=== PATIENT | female | born 1995 | race Caucasian/White ===

== ENCOUNTER 2021-10-10 13:42 | Outpatient (CLI) | payer OTHER ==
[~2021-10-10 13:42] MED LIST: IBUPROFEN600 MG PO
== END 2021-10-10 16:17 | disposition home or self-care (01) ==
LOC: GENOP 13:42
DX: O47.1 False labor at or after 37 completed weeks of gestation (principal); O99.283 Endocrine, nutritional and metabolic diseases complicating pregnancy, third trimester; E03.9 Hypothyroidism, unspecified; O98.313 Other infections with a predominantly sexual mode of transmission complicating pregnancy, third trimester; A63.0 Anogenital (venereal) warts; Z3A.38 38 weeks gestation of pregnancy
CPT/HCPCS: 81001

== ENCOUNTER 2021-10-17 05:28 | Inpatient (IN) | payer OTHER ==
[~2021-10-17] VITALS: Ht 162.6 cm; Wt 74.4 kg
[2021-10-17] MEDS ORDERED: SYNTHROID75 MCG PO (06:19)
[2021-10-17 07:10] LABS: RED BLOOD COUNT 3.55 M/UL (4.00-5.10); WHITE BLOOD COUNT 8.1 K/UL (4.5-11.0)
[2021-10-17] MEDS ORDERED: FERROUS SULFAT325 MG PO (13:14)
[2021-10-17] MEDS ORDERED: DOCUSATE SODIU100 MG PO (13:14)
[2021-10-17] MEDS ORDERED: IBUPROFEN600 MG PO (13:14)
[2021-10-18 07:31] LABS: HEMOGLOBIN 9.4 gm/dl (12.3-15.3)
== END 2021-10-18 21:41 | disposition home or self-care (01) | DRG 807 ==
LOC: OB 05:28
PROVIDERS: Obstetrics & Gynecology; ADMIT Obstetrics & Gynecology
PROC: 10E0XZZ Delivery of Products of Conception, External Approach (ICD-10-PCS; principal; 2021-10-17)
PROC: 10907ZC Drainage of Amniotic Fluid, Therapeutic from Products of Conception, Via Natural or Artificial Opening (ICD-10-PCS; 2021-10-17)
PROC: 3E033VJ Introduction of Other Hormone into Peripheral Vein, Percutaneous Approach (ICD-10-PCS; 2021-10-17)
PROC: 3E0234Z Introduction of Serum, Toxoid and Vaccine into Muscle, Percutaneous Approach (ICD-10-PCS; 2021-10-17)
DX: O80 Encounter for full-term uncomplicated delivery (principal); Z37.0 Single live birth; Z3A.39 39 weeks gestation of pregnancy; Z23 Encounter for immunization; Z20.822 Contact with and (suspected) exposure to COVID-19
CPT/HCPCS: 36415; 81001; 85014; 85018; 85025; 90715; J0595; J2210; J2300; J2590